=== PATIENT | male | born 2000 | race Caucasian/White ===

== ENCOUNTER 2019-03-26 11:22 | Emergency (ER) | payer OTHER ==
[~2019-03-26] VITALS: Ht 182.9 cm; Wt 90.7 kg
[~2019-03-26 11:22] MED LIST: DIPH50 PO; FAMO20 PO; PRED20 PO
== END 2019-03-26 13:00 | disposition home or self-care (01) ==
LOC: ER 11:22
DX: L23.7 Allergic contact dermatitis due to plants, except food (principal); Z88.5 Allergy status to narcotic agent; F17.210 Nicotine dependence, cigarettes, uncomplicated
CPT/HCPCS: 96372; 99282-25; J3301